=== PATIENT | female | born 1990 | race African-American/Black ===

== ENCOUNTER 2025-09-08 21:52 | Emergency (ER) | payer MEDICAID, OTHER ==
[~2025-09-08] VITALS: Ht 170.2 cm; Wt 79.4 kg
[2025-09-08] MEDS ORDERED: TOBR5DRO36 EACHEYE (23:52)
[2025-09-09 01:15] VITALS: BP 124/79; TEMP 98.5; O2SAT 99
== END 2025-09-09 01:15 | disposition home or self-care (01) ==
LOC: ER 21:55
DX: H10.9 Unspecified conjunctivitis (principal); J06.9 Acute upper respiratory infection, unspecified; Z20.822 Contact with and (suspected) exposure to COVID-19
CPT/HCPCS: 86403-TC; 87070-TC